=== PATIENT | female | born 1995 ===

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

== ENCOUNTER 2017-11-20 01:13 | Emergency (ER) | payer OTHER ==
[2017-11-20 01:13] VITALS: BMI 21.9
[2017-11-20 01:25] VITALS: TEMP 99.5
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
[2017-11-20 04:06] VITALS: BP 93/49; PULSE 65; RESP 16
[2017-11-20 05:14] VITALS: O2SAT 99
== END 2017-11-20 04:18 | disposition home or self-care (01) ==
LOC: H.ER 01:13
DX: M54.2 Cervicalgia (principal); M54.9 Dorsalgia, unspecified; F17.210 Nicotine dependence, cigarettes, uncomplicated; V89.2XXA Person injured in unspecified motor-vehicle accident, traffic, initial encounter
CPT/HCPCS: 81025; 96372; 99283; J1885

== ENCOUNTER 2018-02-14 14:24 | Emergency (ER) | payer OTHER ==
[2018-02-14 14:25] VITALS: BMI 21.9
[2018-02-14 14:42] VITALS: BP 127/71; PULSE 121; RESP 19; TEMP 97.6; O2SAT 99
[2018-02-14 17:05] LABS: BASO # 0.1 K/uL (0.0-0.2); BASO % 0.7 % (0.0-2.0); EOS # 0.2 K/uL (0.0-0.7); EOS % 1.8 % (0.0-4.0); HEMOGLOBIN 13.5 g/dL (12.0-16.0); LYMPH # 2.7 K/uL (1.0-4.3); LYMPH % 26.8 % (20.0-40.0); MEAN CELL VOLUME 95.7 fl (81.0-99.0); MEAN CORPUSCULAR HGB CONC 33.4 g/dL (33.0-37.0); MONO # 0.7 K/uL (0.0-0.8); NEUT # 6.3 K/uL (1.8-7.0); NEUT % 63.7 % (50.0-75.0); NRBC % 0.1 % (0.0-0.0); RBC 4.21 Mil/uL (3.80-5.20); RED CELL DISTRIBUTION WIDTH 13.6 % (11.5-14.5); WHITE BLOOD COUNT 9.9 K/uL (4.8-10.8)
[2018-02-14 17:14] LABS: ALB/GLOB RATIO 1.4 (1.0-2.1); ALBUMIN 4.3 g/dL (3.5-5.0); ALT/SGPT 23 U/L (9-52); AST/SGOT 19 U/L (14-36); BLOOD UREA NITROGEN 14 mg/dl (7-17); GFR NON-AFRICAN AMERICAN > 60
--- NOTE | 2018-02-14 17:55 | ED PDOC ---
HPI: General Adult Time Seen by Provider: 02/14/18 14:46 Chief Complaint (Nursing): Dizziness/Lightheaded Chief Complaint (Provider): Dizziness/Lightheaded History Per: Patient History/Exam Limitations: no limitations Additional Complaint(s): 23 y/o female presents to ED complaining of dizziness for the past x2 weeks. Patient reports feeling weak and tired. She denies fever, chills, sore throat, cough, nausea, vomiting, or headache. Patient also complains of abnormal scabbing in the center of her tattoo on her right upper extremity that she got x4 days ago. She states her period is due today and her last menses was normal. Past Medical History Reviewed: Historical Data, Nursing Documentation, Vital Signs Vital Signs: Last Vital Signs Temp 97.6 F 02/14/18 14:38 Pulse 121 H 02/14/18 14:38 Resp 19 02/14/18 14:38 BP 127/71 02/14/18 14:38 Pulse Ox 99 02/14/18 14:38 - Medical History PMH: Gastritis, Migraine Denies: Chronic Kidney Disease - Surgical History Surgical History: Endoscopy - Family History Family History: States: Unknown Family Hx - Immunization History Hx Tetanus Toxoid Vaccination: No Hx Influenza Vaccination: No Hx Pneumococcal Vaccination: No - Home Medications Home Medications: Ambulatory Orders Medication Instructions Recorded Omeprazole Magnesium [Prilosec Otc] 20 mg PO DAILY #30 tcp 11/08/16 Cyclobenzaprine [Cyclobenzaprine 10 mg PO Q8 PRN #12 tab 11/20/17 HCl] Naproxen 500 mg PO BID PRN #20 tab 11/20/17 Cephalexin [Keflex] 500 mg PO BID #14 capsule 02/14/18 - Allergies Allergies/Adverse Reactions: Allergies Allergy/AdvReac Type Severity Reaction Status Date / Time No Known Allergies Allergy Unverified 02/14/18 14:42 Review of Systems ROS Statement: Except As Marked, All Systems Reviewed And Found Negative Constitutional: Positive for: Weakness. Negative for: Fever, Chills Neurological: Positive for: Weakness, Dizziness. Negative for: Headache Physical Exam - Reviewed Nursing Documentation Reviewed: Yes Vital Signs Reviewed: Yes - Physical Exam Appears: Positive for: Well, Non-toxic, No Acute Distress Head Exam: Positive for: ATRAUMATIC, NORMAL INSPECTION, NORMOCEPHALIC Skin: Positive for: Normal Color, Warm, DRY Eye Exam: Positive for: EOMI, Normal appearance, PERRL Neck: Positive for: Normal, Painless ROM Cardiovascular/Chest: Positive for: Regular Rate, Rhythm. Negative for: Murmur, Bradycardia Respiratory: Positive for: Normal Breath Sounds. Negative for: Respiratory Distress Extremity: Positive for: Normal ROM, Other (thick scab in center of flower tattoo located on upper right arm; no drainage no erythema). Negative for: Pedal Edema, Deformity Neurologic/Psych: Positive for: Alert, Oriented. Negative for: Motor/Sensory Deficits - Laboratory Results Result Diagrams: 02/14/18 16:55 02/14/18 16:55 - ECG O2 Sat by Pulse Oximetry: 99 (RA) Pulse Ox Interpretation: Normal Medical Decision Making Medical Decision Making: Time: 16:27 Initial Impression: dizziness and abnormal skin integrity Initial Plan: * EKG * CMP * TSH * CBC w/diff Scribe Attestation: Documented by Vishal Saucedo, acting as a scribe for Shruthi Colon PA-C. Provider Scribe Attestation: All medical record entries made by the Scribe were at my direction and personally dictated by me. I have reviewed the chart and agree that the record accurately reflects my personal performance of the history, physical exam, medical decision making, and the department course for this patient. I have also personally directed, reviewed, and agree with the discharge instructions and disposition. Disposition - Clinical Impression Clinical Impression: Lightheadedness, Tattoo reaction - Patient ED Disposition Is Patient to be Admitted: No - Disposition Disposition: Routine/Home Disposition Time: 17:55 Condition: GOOD Prescriptions: Cephalexin [Keflex] 500 mg PO BID #14 capsule Instructions: Generalized Weakness (DC) Forms: [employer] (Botswanan) Print Language: SETSWANA
--- NOTE | 2018-02-15 09:28 | CARD ---
APPROVED REPORT Date of service: 02/14/2018 EKG Measurement Heart [id number] <Conclusion> Normal sinus rhythm Normal ECG
== END 2018-02-14 18:38 | disposition home or self-care (01) ==
LOC: H.ER 14:24
DX: R42 Dizziness and giddiness (principal); F43.0 Acute stress reaction

== ENCOUNTER 2018-04-09 19:01 | Emergency (ER) | payer OTHER ==
[2018-04-09 19:01] VITALS: BMI 21.9
[2018-04-09 19:17] VITALS: BP 127/80; PULSE 116; RESP 16; TEMP 98.7; O2SAT 100
--- NOTE | 2018-04-09 20:22 | ED PDOC ---
HPI: Headache Time Seen by Provider: 04/09/18 19:19 Chief Complaint (Nursing): Headache Chief Complaint (Provider): Headache History Per: Patient History/Exam Limitations: no limitations Onset/Duration Of Symptoms: Days (x4) Current Symptoms Are (Timing): Still Present Additional Complaint(s): 23 year old female presents to the ED with 4 day history of intermittent mild headaches, gradual on onset. Pain is limited to the forehead. Patient reports associated nasal congestion and facial pressure. Denies fever or chills. 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 PMD: none Past Medical History Reviewed: Historical Data, Nursing Documentation, Vital Signs Vital Signs: Last Vital Signs Temp 98.7 F 04/09/18 19:14 Pulse 116 H 04/09/18 19:14 Resp 16 04/09/18 19:14 BP 127/80 04/09/18 19:14 Pulse Ox 100 04/09/18 19:14 - Medical History PMH: Gastritis, Migraine Denies: Chronic Kidney Disease - Surgical History Surgical History: Endoscopy - Family History Family History: States: Unknown Family Hx - Immunization History Hx Tetanus Toxoid Vaccination: No Hx Influenza Vaccination: No Hx Pneumococcal Vaccination: No - Home Medications Home Medications: Ambulatory Orders Medication Instructions Recorded Omeprazole Magnesium [Prilosec Otc] 20 mg PO DAILY #30 tcp 11/08/16 Cyclobenzaprine [Cyclobenzaprine 10 mg PO Q8 PRN #12 tab 11/20/17 HCl] RX: Naproxen 500 mg PO BID PRN #20 tab 11/20/17 Cephalexin [Keflex] 500 mg PO BID #14 capsule 02/14/18 RX: Ibuprofen [Motrin Tab] 600 mg PO BID #10 tab 04/09/18 - Allergies Allergies/Adverse Reactions: Allergies Allergy/AdvReac Type Severity Reaction Status Date / Time No Known Allergies Allergy Verified 04/09/18 19:14 Review of Systems ROS Statement: Except As Marked, All Systems Reviewed And Found Negative Constitutional: Positive for: Other (facial pressure). Negative for: Fever, Chills ENT: Positive for: Nose Congestion Neurological: Positive for: Headache (mild) Physical Exam - Reviewed Nursing Documentation Reviewed: Yes Vital Signs Reviewed: Yes - Physical Exam Appears: Positive for: Non-toxic, No Acute Distress Head Exam: Positive for: ATRAUMATIC, NORMOCEPHALIC Skin: Positive for: Normal Color, Warm, Dry Eye Exam: Positive for: Normal appearance, EOMI ENT: Negative for: Other (sinus swelling, tenderness, or erythema) Neck: Positive for: Normal, Painless ROM Cardiovascular/Chest: Positive for: Regular Rate, Rhythm Respiratory: Positive for: Normal Breath Sounds. Negative for: Wheezing, Respiratory Distress Extremity: Positive for: Normal ROM Neurologic/Psych: Positive for: Alert, Oriented. Negative for: Motor/Sensory Deficits - ECG O2 Sat by Pulse Oximetry: 100 (RA) Pulse Ox Interpretation: Normal Medical Decision Making Medical Decision Making: Initial Plan: --ED urine --Motrin 600mg PO Pt. well appearing ,on phone, RODRIGUEZ improved, neuro intact, ambulating with steady gait. repeat hr 85. Patient is stable for discharge. ----- Scribe Attestation: Documented by Artemio Hernandez acting as a scribe for Jessi CHOWDHURY. Provider Scribe Attestation: All medical record entries made by the Scribe were at my direction and personally dictated by me. I have reviewed the chart and agree that the record accurately reflects my personal performance of the history, physical exam, medical decision making, and the department course for this patient. I have also personally directed, reviewed, and agree with the discharge instructions and dis position. Disposition - Clinical Impression Clinical Impression: Headache - Disposition Referrals: [facility] [Outside] Disposition Time: 21:26 Condition: STABLE Prescriptions: RX: Ibuprofen [Motrin Tab] 600 mg PO BID #10 tab Instructions: Headache, Adult (DC) Forms: [employer] (Greek) Print Language: INDONESIAN
== END 2018-04-09 20:41 | disposition home or self-care (01) ==
LOC: H.ER 19:01
DX: R51 Headache (principal)

== ENCOUNTER 2018-06-15 00:43 | Emergency (ER) | payer OTHER ==
[2018-06-15 00:43] VITALS: BMI 21.9
[2018-06-15] MEDS ORDERED: Sodium Chloride 0.9% 1,000 ML IV STA (01:32)
--- NOTE | 2018-06-15 01:35 | ED PDOC ---
HPI: Abdomen Time Seen by Provider: 06/15/18 01:15 Chief Complaint (Nursing): Abdominal Pain Chief Complaint (Provider): abdominal pain History Per: Patient History/Exam Limitations: no limitations Onset/Duration Of Symptoms: Days (1) Current Symptoms Are (Timing): Still Present Location Of Pain/Discomfort: Epigastric Quality Of Discomfort: Cramping, Burning, "Pain" Associated Symptoms: Nausea, Vomiting, Diarrhea Additional Complaint(s): 23 y/o female history of gastritis, migraines presents for evaluation of abdominal pain x 1 day. Associated multiple episodes of vomiting and diarrhea, and headache. Denies fever, chest pain, shortness of breath, palpitations, urinary symptoms, recent travel, sick contacts. Patient states she is noncompliant with her medications because she "forgets" Past Medical History Reviewed: Historical Data, Nursing Documentation, Vital Signs Vital Signs: Last Vital Signs Temp 98.2 F 06/15/18 00:58 Pulse 87 06/15/18 00:58 Resp 16 06/15/18 00:58 BP 104/63 06/15/18 00:58 Pulse Ox 99 06/15/18 00:58 - Medical History PMH: Gastritis, Migraine Denies: Chronic Kidney Disease - Surgical History Surgical History: Endoscopy - Family History Family History: States: Unknown Family Hx - Immunization History Hx Tetanus Toxoid Vaccination: No Hx Influenza Vaccination: No Hx Pneumococcal Vaccination: No - Home Medications Home Medications: Ambulatory Orders Medication Instructions Recorded Omeprazole Magnesium [Prilosec Otc] 20 mg PO DAILY #30 tcp 11/08/16 Cyclobenzaprine [Cyclobenzaprine 10 mg PO Q8 PRN #12 tab 11/20/17 HCl] Naproxen 500 mg PO BID PRN #20 tab 11/20/17 Cephalexin [Keflex] 500 mg PO BID #14 capsule 02/14/18 Ibuprofen [Motrin Tab] 600 mg PO BID #10 tab 04/09/18 Esomeprazole Magnesium [Nexium] 20 mg PO DAILY #15 capsule. 06/15/18 Ondansetron ODT [Zofran ODT] 4 mg PO Q8 PRN #10 odt 06/15/18 - Allergies Allergies/Adverse Reactions: Allergies Allergy/AdvReac Type Severity Reaction Status Date / Time No Known Allergies Allergy Verified 04/09/18 19:14 Review of Systems ROS Statement: Except As Marked, All Systems Reviewed And Found Negative Gastrointestinal: Positive for: Nausea, Vomiting, Abdominal Pain, Diarrhea Neurological: Positive for: Headache Physical Exam - Reviewed Nursing Documentation Reviewed: Yes Vital Signs Reviewed: Yes - Physical Exam Appears: Positive for: Well, Non-toxic, No Acute Distress Head Exam: Positive for: ATRAUMATIC, NORMAL INSPECTION, NORMOCEPHALIC Skin: Positive for: Normal Color Eye Exam: Positive for: Normal appearance ENT: Positive for: Normal ENT Inspection Cardiovascular/Chest: Positive for: Regular Rate, Rhythm Respiratory: Positive for: Normal Breath Sounds Gastrointestinal/Abdominal: Positive for: Bowel Sounds, Soft, Tenderness (epigastric) Back: Positive for: Normal Inspection Extremity: Positive for: Normal ROM Neurological/Psych: Positive for: Awake, Alert, Oriented - Laboratory Results Result Diagrams: 06/15/18 02:00 06/15/18 02:00 - ECG O2 Sat by Pulse Oximetry: 99 - Progress ED Course And Treament: -cbc -cmp -lipase -urinalysis -IV NS bolus -IV pepcid -IV zofran On re-eval, patient states she is feeling better, tolerating PO Patient educated on findings, discharged with rx nexium, zofran Advised increase fluid intake, bland diet Follow up PMD/GI Return precautions given Disposition - Clinical Impression Clinical Impression: Gastroenteritis, Gastritis - Patient ED Disposition Is Patient to be Admitted: No Counseled Patient/Family Regarding: Studies Performed, Diagnosis, Need For Followup, Rx Given - Disposition Disposition: Routine/Home Disposition Time: 04:20 Condition: IMPROVED Prescriptions: Esomeprazole Magnesium [Nexium] 20 mg PO DAILY #15 capsule. Ondansetron ODT [Zofran ODT] 4 mg PO Q8 PRN #10 odt PRN Reason: Nausea/Vomiting Instructions: Gastritis, Gastroenteritis (ED) Forms: [employer] (Ukrainian) Print Language: KAZAKH
[2018-06-15 02:25] LABS: BASO # 0.1 K/uL (0.0-0.2); BASO % 0.4 % (0.0-2.0); EOS % 0.4 % (0.0-4.0); HEMOGLOBIN 13.9 g/dL (12.0-16.0); LYMPH # 1.7 K/uL (1.0-4.3); LYMPH % 14.5 % (20.0-40.0); MEAN CELL VOLUME 94.6 fl (81.0-99.0); MEAN CORPUSCULAR HEMOGLOBIN 31.8 pg (27.0-31.0); MEAN CORPUSCULAR HGB CONC 33.6 g/dL (33.0-37.0); MEAN PLATELET VOLUME 9.8 fl (7.2-11.7); MONO # 0.4 K/uL (0.0-0.8); MONO % 3.1 % (0.0-10.0); NEUT # 9.8 K/uL (1.8-7.0); NEUT % 81.6 % (50.0-75.0); RBC 4.36 Mil/uL (3.80-5.20); RED CELL DISTRIBUTION WIDTH 13.1 % (11.5-14.5)
[2018-06-15 02:46] LABS: ALB/GLOB RATIO 1.4 (1.0-2.1); ALT/SGPT 33 U/L (9-52); AST/SGOT 44 U/L (14-36); BLOOD UREA NITROGEN 18 mg/dl (7-17); CALCIUM 10.4 mg/dL (8.4-10.2); GFR NON-AFRICAN AMERICAN > 60; LIPASE 52 U/L (23-300)
[2018-06-15] MEDS ORDERED: Potassium Chloride 20 mEq ER Tab PO ONE ×2 (02:50→03:07)
[2018-06-15 04:54] VITALS: BP 109/59; PULSE 70; RESP 18; TEMP 98.3; O2SAT 98
== END 2018-06-15 04:56 | disposition home or self-care (01) ==
LOC: H.ER 00:43
DX: K29.70 Gastritis, unspecified, without bleeding (principal); K52.9 Noninfective gastroenteritis and colitis, unspecified
CPT/HCPCS: 80053; 81025; 83690; 85025; 96374; 99285; J2405; J2765; J7030

== ENCOUNTER 2018-08-10 18:09 | Emergency (ER) | payer OTHER ==
[2018-08-10 18:10] VITALS: BMI 21.9
[2018-08-10 18:15] VITALS: BP 103/69; PULSE 92; RESP 20; TEMP 98.6; O2SAT 98
--- NOTE | 2018-08-10 19:10 | ED PDOC ---
HPI: Abdomen Additional Complaint(s): 23 y/o F with a PMHx of gastritis by endoscopy (2017) presents with 4 days Hx of epigastric abdominal pain that aggravated progressively and now 10/10 intensity. Pt reports nausea and vomiting multiple time, yellowish bilious material in small amount. Pt cannot tolerate PO, tried to eat fruits this morning and vomited all. Pt is supposed to take Omeprazole daily; however, she usually forgets to take it. Pt denies fever, chills, diarrhea, constipation, chest pain, SOB or rash. --Pt with Hx of chronic sinusitis also complains of headache that aggravated this morning and is associated with nasal congestion and runny nose. PMD: Dr Benito STEIN Meds: Omeprazole PMHx: gastritis, chronic sinusitis. PSHx: denied FHx: denied SHx: smokes cigarettes 3-5 per day. Pt consumes marihuana intermittently, last use yesterday. NO alcohol. <Mikie Love - Last Filed: 08/10/18 19:19> <Jaja Corley - Last Filed: 08/10/18 22:58> Time Seen by Provider: 08/10/18 18:47 Chief Complaint (Nursing): Abdominal Pain Past Medical History Vital Signs: Last Vital Signs Temp 98.6 F 08/10/18 18:13 Pulse 92 H 08/10/18 18:13 Resp 20 08/10/18 18:13 BP 103/69 08/10/18 18:13 Pulse Ox 98 08/10/18 18:13 Primary Care Provider: FAMILY PROVIDER,NO - Medical History PMH: Gastritis, Migraine Denies: Chronic Kidney Disease - Surgical History Surgical History: Endoscopy - Family History Family History: States: Unknown Family Hx - Immunization History Hx Tetanus Toxoid Vaccination: No Hx Influenza Vaccination: No Hx Pneumococcal Vaccination: No <Mikie Love - Last Filed: 08/10/18 19:19> Vital Signs: Last Vital Signs Temp 98.6 F 08/10/18 18:13 Pulse 92 H 08/10/18 18:13 Resp 20 08/10/18 18:13 BP 103/69 08/10/18 18:13 Pulse Ox 98 08/10/18 19:28 <Jaja Corley - Last Filed: 08/10/18 22:58> - Home Medications Home Medications: Ambulatory Orders Medication Instructions Recorded Omeprazole Magnesium [Prilosec Otc] 20 mg PO DAILY #30 tcp 11/08/16 Cyclobenzaprine [Cyclobenzaprine 10 mg PO Q8 PRN #12 tab 11/20/17 HCl] Naproxen 500 mg PO BID PRN #20 tab 11/20/17 Cephalexin [Keflex] 500 mg PO BID #14 capsule 02/14/18 Ibuprofen [Motrin Tab] 600 mg PO BID #10 tab 04/09/18 Esomeprazole Magnesium [Nexium] 20 mg PO DAILY #15 capsule. 06/15/18 Ondansetron ODT [Zofran ODT] 4 mg PO Q8 PRN #10 odt 06/15/18 Amoxicillin/Clavulanate [Augmentin 1 tab PO BID #30 tab 08/10/18 875 MG-125 MG] Clarithromycin [Biaxin Filmtab] 500 mg PO BID #30 tab 08/10/18 Omeprazole Magnesium [Prilosec Otc] 20 mg PO BID #30 tcp 08/10/18 Sucralfate [Carafate Tab] 1 gm PO Q6 PRN #30 tab 08/10/18 - Allergies Allergies/Adverse Reactions: Allergies Allergy/AdvReac Type Severity Reaction Status Date / Time No Known Allergies Allergy Verified 04/09/18 19:14 Review of Systems Constitutional: Negative for: Fever Eyes: Negative for: Pain ENT: Negative for: Ear Pain, Ear Discharge, Nose Pain Cardiovascular: Negative for: Chest Pain, Palpitations, Orthopnea Respiratory: Negative for: Cough, Shortness of Breath, Hemoptysis Gastrointestinal: Positive for: Nausea, Vomiting, Abdominal Pain. Negative for: Diarrhea, Constipation Genitourinary Female: Negative for: Dysuria, Frequency, Hematuria <Mikie Love - Last Filed: 08/10/18 19:19> Physical Exam - Physical Exam Appears: Positive for: In Acute Distress Head Exam: Positive for: ATRAUMATIC Skin: Positive for: Normal Color Eye Exam: Positive for: EOMI ENT: Positive for: Other (Erythematous and edematous b/l nasal turbinates.) Neck: Positive for: Normal, Painless ROM, Supple Cardiovascular/Chest: Positive for: Regular Rate, Rhythm Respiratory: Positive for: Normal Breath Sounds Gastrointestinal/Abdominal: Positive for: Bowel Sounds (present), Soft, Tenderness (epigastric). Negative for: Organomegaly, Distended, Guarding, Rebound Back: Negative for: L CVA Tenderness, R CVA Tenderness Neurological/Psych: Positive for: Awake, Alert <Mikie Love - Last Filed: 08/10/18 19:19> - ECG O2 Sat by Pulse Oximetry: 98 <Mikie Love - Last Filed: 08/10/18 19:19> - Laboratory Results Result Diagrams: 08/10/18 19:48 08/10/18 19:48 Lab Results: Total Bilirubin 0.9 mg/dl (0.2-1.3) 08/10/18 19:48 AST 22 U/L (14-36) 08/10/18 19:48 ALT 22 U/L (9-52) 08/10/18 19:48 Alkaline Phosphatase 73 U/L (38-126) 08/10/18 19:48 Total Protein 8.5 G/DL (6.3-8.2) H 08/10/18 19:48 Albumin 5.0 g/dL (3.5-5.0) 08/10/18 19:48 Globulin 3.5 gm/dL (2.2-3.9) 08/10/18 19:48 Albumin/Globulin Ratio 1.4 (1.0-2.1) 08/10/18 19:48 Lipase 63 U/L (23-300) 08/10/18 19:48 <Jaja Corley - Last Filed: 08/10/18 22:58> Medical Decision Making Medical Decision Makin:00 --Likely gastritis vs peptic ulcer disease. H. Pylori positive. --CBC, CMP, lipase ordered --IV Zofran, IV Famotidine and iV normals saline ordered --Flonase ordered <Mikie Love - Last Filed: 08/10/18 19:19> Medical Decision Making: PRELIMINARY REPORT [facility] (formerly [facility]) [address] [place] [address] Report Submission Date: August 10, 2018 10:32:12 PM EDT Name: RUDY ANGELES Exam Date: August 10, 2018 9:20:27 PM EDT Modality Type: SD\US\SR Description: US - AB LIMITED (SINGLE ORGAN, QUADRANT) Gender: F Laterality: Right : 97 Referring Physician: Jaja Corley EXAM: US Abdomen, Right Upper Quadrant. CLINICAL HISTORY: Epigastric pain, vomiting TECHNIQUE: Right upper quadrant sonography performed with image documentation. COMPARISON: None provided. FINDINGS: LIVER: Liver is normal in size and echogenicity and demonstrates no focal lesions. GALLBLADDER: Gallbladder has a normal sonographic appearance without stones, sludge or polyps. There is no wall edema and the sonographic Camacho sign is negative. COMMON BILE DUCT: The common bile duct is normal in caliber measuring 0.4 cm. PANCREAS: The visualized pancreas has a normal sonographic appearance. The tail is not well seen secondary to overlying bowel gas. RIGHT KIDNEY: Right kidney is normal in size and demonstrates no hydronephrosis or focal lesions. MISCELLANEOUS: Visualized portions of the abdominal aorta appear unremarkable. The IVC is not well visualized. IMPRESSION: 1. Liver is normal in size and echogenicity and demonstrates no focal lesions. 2. Gallbladder has a normal sonographic appearance without stones, sludge or polyps. There is no wall edema and the sonographic Camacho sign is negative. 3. The common bile duct is normal in caliber measuring 0.4 cm. 4. The visualized pancreas has a normal sonographic appearance. The tail is not well seen secondary to overlying bowel gas. 5. Visualized portions of the abdominal aorta appear unremarkable. The IVC is not well visualized. 6. Right kidney is normal in size and demonstrates no hydronephrosis or focal lesions. Electronically signed on August 10, 2018 10:32:12 PM EDT by: Ozzy Jay M.D., M.B.A., Certified By [employer] Trained MRI and CT Specialist -------- On reassessment, patient reports feeling improvement in symptoms. Patient is stable for discharge home, instructed to take medications as prescribed. Return instructions given to patient as well. --- Scribe Attestation: Documented by Ruby Biggs acting as a scribe for Jaja Corley MD. Provider Scribe Attestation: All medical record entries made by the Scribe were at my direction and personally dictated by me. I have reviewed the chart and agree that the record accurately reflects my personal performance of the history, physical exam, medical decision making, and the department course for this patient. I have also personally directed, reviewed, and agree with the discharge instructions and disposition. <Jaja Corley - Last Filed: 08/10/18 22:58> Disposition - Patient ED Disposition Is Patient to be Admitted: Transfer of Care - Disposition Disposition: Transfer of Care Disposition Time: 19:27 <Mikie Love - Last Filed: 08/10/18 19:19> Counseled Patient/Family Regarding: Studies Performed, Diagnosis, Need For Followup, Rx Given - Disposition Disposition: Routine/Home <Jaja Corley - Last Filed: 08/10/18 22:58> - Clinical Impression Clinical Impression: Abdominal pain, Gastritis - Disposition Referrals: [facility] [Outside] - 08/11/18 (CALL TOMORROW FOR FOLLOWUP APPOINTMENT NEXT WEEK) Condition: STABLE Prescriptions: Amoxicillin/Clavulanate [Augmentin 875 MG-125 MG] 1 tab PO BID #30 tab Clarithromycin [Biaxin Filmtab] 500 mg PO BID #30 tab Omeprazole Magnesium [Prilosec Otc] 20 mg PO BID #30 tcp Sucralfate [Carafate Tab] 1 gm PO Q6 PRN #30 tab PRN Reason: ABDOMINAL PAIN Instructions: Acute Abdomen (Belly Pain), Adult (DC), H. pylori Infection, Gastritis (DC) Forms: [employer] (Japanese)
[2018-08-10] MEDS ORDERED: Sodium Chloride 0.9% 1,000 ML IV SCH (19:15)
[2018-08-10 19:57] LABS: BASO # 0.1 K/uL (0.0-0.2); BASO % 0.4 % (0.0-2.0); EOS # 0.1 K/uL (0.0-0.7); EOS % 0.6 % (0.0-4.0); HEMOGLOBIN 13.9 g/dL (12.0-16.0); LYMPH # 2.4 K/uL (1.0-4.3); LYMPH % 13.2 % (20.0-40.0); MEAN CELL VOLUME 95.3 fl (81.0-99.0); MEAN CORPUSCULAR HGB CONC 33.6 g/dL (33.0-37.0); MONO # 0.7 K/uL (0.0-0.8); NEUT # 14.6 K/uL (1.8-7.0); NEUT % 81.8 % (50.0-75.0); NRBC % 0.1 % (0.0-0.0); RBC 4.33 Mil/uL (3.80-5.20); RED CELL DISTRIBUTION WIDTH 13.6 % (11.5-14.5); WHITE BLOOD COUNT 17.8 K/uL (4.8-10.8)
[2018-08-10 20:06] LABS: ALB/GLOB RATIO 1.4 (1.0-2.1); ALT/SGPT 22 U/L (9-52); AST/SGOT 22 U/L (14-36); BLOOD UREA NITROGEN 13 mg/dl (7-17); GFR NON-AFRICAN AMERICAN > 60; LIPASE 63 U/L (23-300)
--- NOTE | 2018-08-11 13:54 | US ---
Date of service: 08/10/2018 HISTORY: UPPER ABDOMINAL PAIN COMPARISON: None. TECHNIQUE: Sonographic evaluation of the right upper quadrant of the abdomen. FINDINGS: LIVER: Measures 12.4 cm in length. Patent portal and hepatic venous systems. Portal venous flow: Hepatopetal. echogenicity of the liver parenchyma. No mass. No intrahepatic bile duct dilatation. GALLBLADDER: Unremarkable. No gallstones. COMMON BILE DUCT: Measures 3.5 mm. No stones. No dilatation. PANCREAS: Unremarkable as visualized. No mass. No ductal dilatation. RIGHT KIDNEY: Measures 3.6 x 11.3 cm in length. Normal echogenicity. No calculus, mass, or hydronephrosis. AORTA: No aneurysmal dilatation. IVC: Obscured by overlying bowel gas. Non diagnostic assessment of the IVC. OTHER FINDINGS: None . IMPRESSION: No significant or acute findings to account for/ related to the clinical presentation. Additional benign and/or incidental findings described above. Limitations of the current examination: Nondiagnostic study of the IVC. Concordant findings (preliminary report) provided by [employer].
== END 2018-08-10 23:05 | disposition home or self-care (01) ==
LOC: H.ER 18:09
DX: K29.70 Gastritis, unspecified, without bleeding (principal)
CPT/HCPCS: 76705; 80053; 81025; 83690; 85025; 96374; 96375; 99284; J2405; J7030

== ENCOUNTER 2018-08-12 18:05 | Emergency (ER) | payer OTHER ==
[2018-08-12 18:06] VITALS: BMI 21.9
[2018-08-12 18:27] VITALS: O2SAT 99
[2018-08-12] MEDS ORDERED: Iohexol 240 (50 ml) PO ONE (19:11)
[2018-08-12] MEDS ORDERED: Alum-Mag Hydrox-Simethicone Susp (30 mL) PO STA (19:12)
[2018-08-12] MEDS ORDERED: Sodium Chloride 0.9% 1,000 ML IV STA (19:12)
[2018-08-12] MEDS ORDERED: Iohexol 240 (50 ml) ONE (19:35)
[2018-08-12] MEDS ORDERED: Alum-Mag Hydrox-Simethicone Susp (30 mL) ONE (19:36)
[2018-08-12 19:56] LABS: BASO # 0.1 K/uL (0.0-0.2); BASO % 0.9 % (0.0-2.0); EOS % 0.3 % (0.0-4.0); HEMOGLOBIN 13.2 g/dL (12.0-16.0); LYMPH # 1.9 K/uL (1.0-4.3); LYMPH % 20.5 % (20.0-40.0); MEAN CELL VOLUME 94.9 fl (81.0-99.0); MEAN CORPUSCULAR HEMOGLOBIN 32.3 pg (27.0-31.0); MEAN PLATELET VOLUME 9.2 fl (7.2-11.7); MONO # 0.7 K/uL (0.0-0.8); MONO % 7.7 % (0.0-10.0); NEUT # 6.7 K/uL (1.8-7.0); NEUT % 70.6 % (50.0-75.0); NRBC % 0.1 % (0.0-0.0); RBC 4.09 Mil/uL (3.80-5.20); RED CELL DISTRIBUTION WIDTH 13.4 % (11.5-14.5); WHITE BLOOD COUNT 9.5 K/uL (4.8-10.8)
--- NOTE | 2018-08-12 20:00 | ED PDOC ---
HPI: Abdomen Time Seen by Provider: 08/12/18 18:40 Chief Complaint (Nursing): Abdominal Pain Chief Complaint (Provider): Epigastric pain - Pepcid at home History Per: Patient History/Exam Limitations: no limitations Past Medical History Vital Signs: Last Vital Signs Temp 99 F 08/12/18 18:24 Pulse 98 H 08/12/18 18:24 Resp 18 08/12/18 18:24 BP 123/78 08/12/18 18:24 Pulse Ox 99 08/12/18 18:24 Primary Care Provider: FAMILY PROVIDER,NO - Medical History PMH: Gastritis, Migraine Denies: Chronic Kidney Disease - Surgical History Surgical History: Endoscopy - Family History Family History: States: Unknown Family Hx - Immunization History Hx Tetanus Toxoid Vaccination: No Hx Influenza Vaccination: No Hx Pneumococcal Vaccination: No - Home Medications Home Medications: Ambulatory Orders Medication Instructions Recorded Omeprazole Magnesium [Prilosec Otc] 20 mg PO DAILY #30 tcp 11/08/16 Cyclobenzaprine [Cyclobenzaprine 10 mg PO Q8 PRN #12 tab 11/20/17 HCl] Naproxen 500 mg PO BID PRN #20 tab 11/20/17 Cephalexin [Keflex] 500 mg PO BID #14 capsule 02/14/18 Ibuprofen [Motrin Tab] 600 mg PO BID #10 tab 04/09/18 Esomeprazole Magnesium [Nexium] 20 mg PO DAILY #15 capsule.dr 06/15/18 Ondansetron ODT [Zofran ODT] 4 mg PO Q8 PRN #10 odt 06/15/18 Amoxicillin/Clavulanate [Augmentin 1 tab PO BID #30 tab 08/10/18 875 MG-125 MG] Clarithromycin [Biaxin Filmtab] 500 mg PO BID #30 tab 08/10/18 Omeprazole Magnesium [Prilosec Otc] 20 mg PO BID #30 tcp 08/10/18 Sucralfate [Carafate Tab] 1 gm PO Q6 PRN #30 tab 08/10/18 - Allergies Allergies/Adverse Reactions: Allergies Allergy/AdvReac Type Severity Reaction Status Date / Time No Known Allergies Allergy Verified 04/09/18 19:14 - ECG O2 Sat by Pulse Oximetry: 99 Medical Decision Making Medical Decision Makin - Continued pain, morphine 2mg ordered. Endorsed to JIM Frereira Disposition - Clinical Impression Clinical Impression: Abdominal pain in female - Patient ED Disposition Is Patient to be Admitted: Transfer of Care - Disposition Disposition: Transfer of Care Disposition Time: 20:01 Condition: STABLE Forms: [employer] (Frisian)
[2018-08-12 20:09] LABS: ALB/GLOB RATIO 1.5 (1.0-2.1); ALBUMIN 4.6 g/dL (3.5-5.0); ALT/SGPT 23 U/L (9-52); AST/SGOT 20 U/L (14-36); BLOOD UREA NITROGEN 9 mg/dl (7-17); CALCIUM 9.3 mg/dL (8.4-10.2); GFR NON-AFRICAN AMERICAN > 60; LIPASE 103 U/L (23-300)
--- NOTE | 2018-08-12 20:12 | ED PDOC ---
- Laboratory Results Result Diagrams: 08/12/18 19:40 08/12/18 19:40 Lab Results: Total Bilirubin 0.8 mg/dl (0.2-1.3) 08/12/18 19:40 AST 20 U/L (14-36) 08/12/18 19:40 ALT 23 U/L (9-52) 08/12/18 19:40 Alkaline Phosphatase 61 U/L (38-126) 08/12/18 19:40 Total Protein 7.7 G/DL (6.3-8.2) 08/12/18 19:40 Albumin 4.6 g/dL (3.5-5.0) 08/12/18 19:40 Globulin 3.0 gm/dL (2.2-3.9) 08/12/18 19:40 Albumin/Globulin Ratio 1.5 (1.0-2.1) 08/12/18 19:40 Lipase 103 U/L (23-300) 08/12/18 19:40 - ECG O2 Sat by Pulse Oximetry: 99 Medical Decision Making Medical Decision Making: EXAM: CT Abdomen and Pelvis with IV contrast CLINICAL HISTORY: ABDOMINAL PAIN TECHNIQUE: Axial computed tomography images of the abdomen and pelvis with intravenous co ntrast. 248.23 mGy-cm CONTRAST: With; [id number] 95ML COMPARISON: SD\US\SR - ABDOMEN LIMITED (GB INCLUDED) - 08/10/2018 09:20 PM EDT FINDINGS: LUNG BASES: The lung bases appear clear. No pleural effusions are seen. LIVER: Unremarkable. GALLBLADDER AND BILE DUCTS: The gallbladder appears within normal limits. No radioopaque gallstones are seen. No biliary ductal dilatation is evident. PANCREAS: Unremarkable. SPLEEN: Unremarkable. ADRENAL GLANDS: Unremarkable. KIDNEYS, URETERS, AND BLADDER: The kidneys appear within normal limits. There is no hydronephrosis or hydrou reter. No urinary calculi are seen. STOMACH AND BOWEL: Questionable gastric wall thickening versus underdistention. Please correlate clinically and if indicated this could be further evaluated with upper endoscopy or upper GI examination. APPENDIX: Normal appendix identified. PERITONEUM: No free fluid. No free air. LYMPH NODES: No lymphadenopathy is evident. REPRODUCTIVE: Unremarkable as visualized. VASCULATURE: No evidence of abdominal aortic aneurysm. BONES: No aggressive appearing osseous lesion. No acute osseous pathology evident. IMPRESSION: 1. Questionable gastric wall thickening versus underdistention. Please correlate clinically and if indicated this could be further evaluated with upper endoscopy or upper GI examination. 2. Additional, incidental findings as described above. Electronically signed on August 12, 2018 11:12:21 PM EDT by: Ozzy Jay M.D., M.B.A., Certified By [facility] Trained MRI and CT Specialist Disposition - Clinical Impression Clinical Impression: Gastritis - POA Present On Arrival: None - Disposition Referrals: Margarito Jesus MD [Staff Provider] - Disposition: Routine/Home Disposition Time: 23:33 Condition: STABLE Prescriptions: Ondansetron ODT [Zofran ODT] 4 mg PO Q8 PRN #8 odt PRN Reason: Nausea/Vomiting Pantoprazole Sodium [Protonix] 40 mg PO DAILY #15 ect Sucralfate [Carafate] 10 ml PO QID #280 ml Instructions: Gastritis, Ulcer and Gastritis Diet Forms: [facility] ED School/Work Excuse
[2018-08-12] MEDS ORDERED: Iohexol 300 100 ML IJ ONE (22:05)
[2018-08-12] MEDS ORDERED: Sodium Chloride 0.9% 50 ML IV ONE (22:06)
[2018-08-12] MEDS ORDERED: Sucralfate 1 gm/10 ml Oral Susp UD PO STA (23:38)
[2018-08-12] MEDS ORDERED: Sucralfate 1 gm/10 ml Oral Susp UD ONE (23:43)
[2018-08-13 02:20] VITALS: BP 104/60; PULSE 76; RESP 14; TEMP 98.8
--- NOTE | 2018-08-13 12:49 | CT ---
Date of service: 08/12/2018 PROCEDURE: CT Abdomen and Pelvis with contrast HISTORY: abdominal pain COMPARISON: None. TECHNIQUE: Following oral and intravenous contrast administration, a CT examination of the abdomen and pelvis was performed from the domes of the diaphragms to the symphysis pubis with reformatted datasets provided not only axial but also sagittal and coronal series. Contrast dose: Omnipaque 300, 95 cc Radiation dose: Total exam DLP = 248.23 mGy-cm. This CT exam was performed using one or more of the following dose reduction techniques: Automated exposure control, adjustment of the mA and/or kV according to patient size, and/or use of iterative reconstruction technique. FINDINGS: LOWER THORAX: Unremarkable. LIVER: Unremarkable. No gross lesion or ductal dilatation. GALLBLADDER AND BILE DUCTS: Gallbladder is moderate distended without mural thickening or radiodense cholelithiasis. PANCREAS: Unremarkable. No gross lesion or ductal dilatation. SPLEEN: Unremarkable. ADRENALS: Unremarkable. No mass. KIDNEYS AND URETERS: Unremarkable. No hydronephrosis. No solid mass. VASCULATURE: Unremarkable. No aortic aneurysm. No aortic atherosclerotic calcification or mural plaque present. BOWEL: Unremarkable. No obstruction. No gross mural thickening. APPENDIX: No CT evidence of appendicitis. PERITONEUM: Trace fluid noted in the pelvis. No free air. No abdominal ascites. LYMPH NODES: Unremarkable. No enlarged lymph nodes. BLADDER: Unremarkable. REPRODUCTIVE: Unremarkable. BONES: No acute fracture. OTHER FINDINGS: None. IMPRESSION: Trace fluid seen the pelvis of uncertain origin. No suspicious adnexal findings. No bowel or urinary tract obstruction. No free air or peritoneal abscess identified. No gross mass or significant lymphadenopathy. Stomach is completely collapsed limiting its evaluation. Mural thickening may be a function of under distention but clinical correlation is advised for potential gastritis or other mural pathology at the stomach. Concordant preliminary report from [facility] [employer], 08/12/2018, 11:12 p.m..
== END 2018-08-13 02:15 | disposition home or self-care (01) ==
LOC: H.ER 18:05
DX: K29.70 Gastritis, unspecified, without bleeding (principal)
CPT/HCPCS: 74177; 80053; 81025; 83690; 85025; 96361; 96374; 96375; 99285; J1885; J2270; J2405; J7030; Q9966; Q9967

== ENCOUNTER 2018-08-15 05:40 | Emergency (ER) | payer OTHER ==
[2018-08-15 05:41] VITALS: BMI 21.9
[2018-08-15 06:02] VITALS: O2SAT 100
[2018-08-15] MEDS ORDERED: Sodium Chloride 0.9% 1,000 ML IV STA (06:08)
--- NOTE | 2018-08-15 06:19 | ED PDOC ---
HPI: Abdomen Time Seen by Provider: 08/15/18 05:43 Chief Complaint (Nursing): Abdominal Pain Chief Complaint (Provider): Abdominal pain History Per: Patient History/Exam Limitations: no limitations Onset/Duration Of Symptoms: Days Current Symptoms Are (Timing): Still Present Location Of Pain/Discomfort: Epigastric Quality Of Discomfort: "Pain" Associated Symptoms: Nausea, Vomiting, Diarrhea, Loss Of Appetite Additional Complaint(s): 23yo female with history of gastritis, H.Pylori (intermittent compliance with prior treatment), comes to ER for evaluation of epigastric abdominal pain. patient was evaluated in this ER last week and today is her 3rd visit for same complaints. Patient reports persistent nausea, vomiting, diarrhea and epigastric pain. She states she has been unable to tolerate PO intake and is unsure of what she can and cannot eat. She denies any increased intake of Motrin, caffeine or alcohol. PMD: Dr. Aguirre Past Medical History Reviewed: Historical Data, Nursing Documentation, Vital Signs Vital Signs: Last Vital Signs Temp 98.3 F 08/15/18 05:58 Pulse 83 08/15/18 05:58 Resp 18 08/15/18 05:58 BP 143/79 08/15/18 05:58 Pulse Ox 100 08/15/18 05:58 Primary Care Provider: Enrique Aguirre - Medical History PMH: Gastritis, Migraine Denies: Chronic Kidney Disease - Surgical History Surgical History: Endoscopy - Family History Family History: States: Unknown Family Hx - Social History Current smoker - smoking cessation education provided: Yes Alcohol: None Drugs: Denies - Immunization History Hx Tetanus Toxoid Vaccination: No Hx Influenza Vaccination: No Hx Pneumococcal Vaccination: No - Home Medications Home Medications: Ambulatory Orders Medication Instructions Recorded Omeprazole Magnesium [Prilosec Otc] 20 mg PO DAILY #30 tcp 11/08/16 Cyclobenzaprine [Cyclobenzaprine 10 mg PO Q8 PRN #12 tab 11/20/17 HCl] Naproxen 500 mg PO BID PRN #20 tab 11/20/17 Cephalexin [Keflex] 500 mg PO BID #14 capsule 02/14/18 Ibuprofen [Motrin Tab] 600 mg PO BID #10 tab 04/09/18 Esomeprazole Magnesium [Nexium] 20 mg PO DAILY #15 capsule. 06/15/18 Ondansetron ODT [Zofran ODT] 4 mg PO Q8 PRN #10 odt 06/15/18 Amoxicillin/Clavulanate [Augmentin 1 tab PO BID #30 tab 08/10/18 875 MG-125 MG] Clarithromycin [Biaxin Filmtab] 500 mg PO BID #30 tab 08/10/18 Omeprazole Magnesium [Prilosec Otc] 20 mg PO BID #30 tcp 08/10/18 Sucralfate [Carafate Tab] 1 gm PO Q6 PRN #30 tab 08/10/18 Ondansetron ODT [Zofran ODT] 4 mg PO Q8 PRN #8 odt 08/12/18 Pantoprazole Sodium [Protonix] 40 mg PO DAILY #15 ect 08/12/18 Sucralfate [Carafate] 10 ml PO QID #280 ml 08/12/18 Dicyclomine [Bentyl] 20 mg PO QID PRN #10 tab 08/15/18 Famotidine [Pepcid] 20 mg PO BID #20 tab 08/15/18 - Allergies Allergies/Adverse Reactions: Allergies Allergy/AdvReac Type Severity Reaction Status Date / Time No Known Allergies Allergy Verified 08/15/18 05:58 Review of Systems ROS Statement: Except As Marked, All Systems Reviewed And Found Negative Constitutional: Negative for: Fever, Chills Gastrointestinal: Positive for: Nausea, Vomiting, Abdominal Pain, Diarrhea Physical Exam - Reviewed Nursing Documentation Reviewed: Yes Vital Signs Reviewed: Yes - Physical Exam Appears: Positive for: Non-toxic, Uncomfortable Head Exam: Positive for: ATRAUMATIC, NORMAL INSPECTION, NORMOCEPHALIC Skin: Positive for: Normal Color Eye Exam: Positive for: Normal appearance ENT: Positive for: Normal ENT Inspection Neck: Positive for: Normal, Supple Cardiovascular/Chest: Positive for: Regular Rate, Rhythm. Negative for: Tachycardia Respiratory: Positive for: Normal Breath Sounds. Negative for: Respiratory Distress Gastrointestinal/Abdominal: Positive for: Bowel Sounds, Soft, Tenderness (epigastric mild tenderness, no RUQ no RLQ tenderness). Negative for: Mass, Guarding, Rebound Back: Positive for: Normal Inspection Extremity: Positive for: Normal ROM Neurological/Psych: Positive for: Awake, Alert, Normal Tone - Laboratory Results Result Diagrams: 08/15/18 06:20 08/15/18 06:20 - ECG O2 Sat by Pulse Oximetry: 100 (RA) Pulse Ox Interpretation: Normal Medical Decision Making Medical Decision Making: Impression: Epigastric pain; history of gastritis, H.Pylori, poor compliance with medication likely gastritis rule out pancreatitis Plan: -- Labs -- Pepcid 20mg IV -- IV Fluids -- Maalox 30ml PO -- Zofran 4mg IV 0654 Labs reviewed, patient is hypokalemic Potassium Chloride 20meq ordered Patient advised on high potassium diet at home 0700 Patient signed out to Dr. Steinberg pending reassessment, ER disposition. Scribe Attestation: Documented by Ruby Padilla acting as a scribe for Rosalia Dickson MD. Provider Scribe Attestation: All medical record entries made by the Scribe were at my direction and personally dictated by me. I have reviewed the chart and agree that the record accurately reflects my personal performance of the history, physical exam, medical decision making, and the department course for this patient. I have also personally directed, reviewed, and agree with the discharge instructions and disposition. Disposition - Clinical Impression Clinical Impression: Epigastric abdominal pain - Patient ED Disposition Is Patient to be Admitted: Transfer of Care - Disposition Referrals: Ayaan Barron MD, PhD [Staff Provider] - Enrique Aguirre MD [Medical Doctor] - Disposition: Transfer of Care Disposition Time: 07:00 Condition: STABLE Prescriptions: Dicyclomine [Bentyl] 20 mg PO QID PRN #10 tab PRN Reason: Pain, Moderate (4-7) Famotidine [Pepcid] 20 mg PO BID #20 tab Instructions: Stomach Ache and Stomach Upset, Ulcer and Gastritis Diet Forms: [employer] (Amharic) Patient Signed Over To: Anita Steinberg
[2018-08-15 06:42] LABS: BASO # 0.1 K/uL (0.0-0.2); BASO % 0.8 % (0.0-2.0); EOS # 0.1 K/uL (0.0-0.7); HEMOGLOBIN 13.3 g/dL (12.0-16.0); LYMPH # 1.9 K/uL (1.0-4.3); LYMPH % 20.6 % (20.0-40.0); MEAN CELL VOLUME 95.4 fl (81.0-99.0); MEAN CORPUSCULAR HEMOGLOBIN 32.3 pg (27.0-31.0); MEAN CORPUSCULAR HGB CONC 33.9 g/dL (33.0-37.0); MEAN PLATELET VOLUME 9.3 fl (7.2-11.7); MONO # 0.7 K/uL (0.0-0.8); NEUT # 6.3 K/uL (1.8-7.0); NEUT % 69.6 % (50.0-75.0); RBC 4.12 Mil/uL (3.80-5.20); RED CELL DISTRIBUTION WIDTH 13.4 % (11.5-14.5)
[2018-08-15 06:52] LABS: ALB/GLOB RATIO 1.5 (1.0-2.1); ALBUMIN 4.8 g/dL (3.5-5.0); ALT/SGPT 26 U/L (9-52); AST/SGOT 22 U/L (14-36); BLOOD UREA NITROGEN 9 mg/dl (7-17); CALCIUM 9.4 mg/dL (8.4-10.2); GFR NON-AFRICAN AMERICAN > 60; LIPASE 130 U/L (23-300)
[2018-08-15] MEDS ORDERED: Potassium Chloride 20 mEq ER Tab PO ONE ×2 (06:54→09:50)
[2018-08-15] MEDS ORDERED: Alum-Mag Hydrox-Simethicone Susp (30 mL) PO ONE (06:54)
--- NOTE | 2018-08-15 07:10 | ED PDOC ---
- Laboratory Results Result Diagrams: 08/15/18 06:20 08/15/18 06:20 Lab Results: Total Bilirubin 0.7 mg/dl (0.2-1.3) 08/15/18 06:20 AST 22 U/L (14-36) 08/15/18 06:20 ALT 26 U/L (9-52) 08/15/18 06:20 Alkaline Phosphatase 58 U/L (38-126) 08/15/18 06:20 Total Protein 8.0 G/DL (6.3-8.2) 08/15/18 06:20 Albumin 4.8 g/dL (3.5-5.0) 08/15/18 06:20 Globulin 3.1 gm/dL (2.2-3.9) 08/15/18 06:20 Albumin/Globulin Ratio 1.5 (1.0-2.1) 08/15/18 06:20 Lipase 130 U/L (23-300) 08/15/18 06:20 - ECG O2 Sat by Pulse Oximetry: 100 (RA) Pulse Ox Interpretation: Normal Medical Decision Making Medical Decision Making: Time: [address] Dickson, pending reassessment and final ER disposition. 07:30 Pt hungry, requesting food. 09:20 Pt c/o epigastric pain after eating, Bentyl ordered. 10:00 Pt sleeping comfortably, states feeling better. Has appt with GI today. Scribe Attestation: Documented by Annabel Palacios acting as a scribe for Anita Steinberg MD. Provider Scribe Attestation: All medical record entries made by the Scribe were at my direction and personally dictated by me. I have reviewed the chart and agree that the record accurately reflects my personal performance of the history, physical exam, medical decision making, and the department course for this patient. I have also personally directed, reviewed, and agree with the discharge instructions and disposition. Disposition - Clinical Impression Clinical Impression: Epigastric abdominal pain - POA Present On Arrival: None - Disposition Referrals: Ayaan Barron MD, PhD [Staff Provider] - Enrique Aguirre MD [Medical Doctor] - Disposition: Routine/Home Disposition Time: 10:00 Condition: STABLE Prescriptions: Dicyclomine [Bentyl] 20 mg PO QID PRN #10 tab PRN Reason: Pain, Moderate (4-7) Famotidine [Pepcid] 20 mg PO BID #20 tab Instructions: Stomach Ache and Stomach Upset, Ulcer and Gastritis Diet Forms: [employer] (Tajik)
[2018-08-15] MEDS ORDERED: Alum-Mag Hydrox-Simethicone Susp (30 mL) ONE (09:50)
[2018-08-15 10:57] VITALS: RESP 17
[2018-08-15 11:01] VITALS: BP 129/69; PULSE 74; TEMP 97.9
== END 2018-08-15 10:30 | disposition home or self-care (01) ==
LOC: H.ER 05:40
DX: R10.13 Epigastric pain (principal); F17.200 Nicotine dependence, unspecified, uncomplicated; Z86.19 Personal history of other infectious and parasitic diseases; Z91.14 Patient's other noncompliance with medication regimen
CPT/HCPCS: 80053; 81025; 83690; 85025; 96374; 99284; J2405; J7030

== ENCOUNTER 2018-08-19 07:44 | Emergency (ER) | payer OTHER ==
[2018-08-19 07:53] VITALS: BMI 30.7
--- NOTE | 2018-08-19 08:12 | ED PDOC ---
HPI: Psych/Substance Abuse Time Seen by Provider: 08/19/18 08:02 Chief Complaint (Nursing): Substance Abuse Chief Complaint (Provider): Substance Abuse ED Caveat: Intoxicated History Per: Patient History/Exam Limitations: no limitations Current Symptoms Are (Timing): Still Present Modifying Factor(s): Other (LSD) Additional Complaint(s): 23 year old female with medical history of gastritis and migraines, presents to the emergency department for an evaluation after admitting to taking LSD at midnight last night. Otherwise, she denies any physical complaints, other drug use, alcohol use, suicidal or homicidal ideation. Past Medical History Reviewed: Historical Data, Nursing Documentation, Vital Signs Vital Signs: Last Vital Signs Temp 98.7 F 08/19/18 07:56 Pulse 124 H 08/19/18 07:56 Resp 23 08/19/18 07:56 BP 123/74 08/19/18 07:56 Pulse Ox 98 08/19/18 08:03 Primary Care Provider: FAMILY PROVIDER,NO - Medical History PMH: Gastritis, Migraine Denies: Chronic Kidney Disease - Surgical History Surgical History: Endoscopy - Family History Family History: States: Unknown Family Hx - Social History Alcohol: None Drugs: Other (LSD) - Immunization History Hx Tetanus Toxoid Vaccination: No Hx Influenza Vaccination: No Hx Pneumococcal Vaccination: No - Home Medications Home Medications: Ambulatory Orders Medication Instructions Recorded Omeprazole Magnesium [Prilosec Otc] 20 mg PO DAILY #30 tcp 11/08/16 Cyclobenzaprine [Cyclobenzaprine 10 mg PO Q8 PRN #12 tab 11/20/17 HCl] Naproxen 500 mg PO BID PRN #20 tab 11/20/17 Cephalexin [Keflex] 500 mg PO BID #14 capsule 02/14/18 Ibuprofen [Motrin Tab] 600 mg PO BID #10 tab 04/09/18 Esomeprazole Magnesium [Nexium] 20 mg PO DAILY #15 capsule. 06/15/18 Ondansetron ODT [Zofran ODT] 4 mg PO Q8 PRN #10 odt 06/15/18 Amoxicillin/Clavulanate [Augmentin 1 tab PO BID #30 tab 08/10/18 875 MG-125 MG] Clarithromycin [Biaxin Filmtab] 500 mg PO BID #30 tab 08/10/18 Omeprazole Magnesium [Prilosec Otc] 20 mg PO BID #30 tcp 08/10/18 Sucralfate [Carafate Tab] 1 gm PO Q6 PRN #30 tab 08/10/18 Ondansetron ODT [Zofran ODT] 4 mg PO Q8 PRN #8 odt 08/12/18 Pantoprazole Sodium [Protonix] 40 mg PO DAILY #15 ect 08/12/18 Sucralfate [Carafate] 10 ml PO QID #280 ml 08/12/18 Dicyclomine [Bentyl] 20 mg PO QID PRN #10 tab 08/15/18 Famotidine [Pepcid] 20 mg PO BID #20 tab 08/15/18 - Allergies Allergies/Adverse Reactions: Allergies Allergy/AdvReac Type Severity Reaction Status Date / Time No Known Allergies Allergy Verified 08/19/18 08:02 Review of Systems ROS Statement: Except As Marked, All Systems Reviewed And Found Negative Constitutional: Negative for: Fever, Chills Psych: Negative for: Suicidal ideation (or homidal ideation) Physical Exam - Reviewed Nursing Documentation Reviewed: Yes Vital Signs Reviewed: Yes - Physical Exam Appears: Positive for: Non-toxic, No Acute Distress Head Exam: Positive for: ATRAUMATIC, NORMAL INSPECTION, NORMOCEPHALIC Skin: Positive for: Normal Color. Negative for: Pallor Eye Exam: Positive for: Normal appearance, EOMI, PERRL ENT: Positive for: Normal ENT Inspection. Negative for: Pharyngeal Erythema Neck: Positive for: Normal Cardiovascular/Chest: Positive for: Chest Non Tender, Tachycardia. Negative for: Murmur Respiratory: Positive for: Normal Breath Sounds. Negative for: Wheezing, Respiratory Distress Pulses-Radial (L): 2+ Pulses-Radial (R): 2+ Gastrointestinal/Abdominal: Positive for: Normal Exam, Soft. Negative for: Tenderness Extremity: Positive for: Normal ROM (upper/lower) Neurological/Psych: Positive for: Awake, Alert. Negative for: Motor/Sensory Deficits - Laboratory Results Urine POC: Negative - ECG O2 Sat by Pulse Oximetry: 98 (RA) Pulse Ox Interpretation: Normal - Progress Re-evaluation Time: 11:38 Condition: Improved (Awake alert oriented x 3 no focal neuro deficits. Denies HI/SI) Medical Decision Making Medical Decision Making: Time: 808 Initial Plan: * EKG * Alcohol/drug screen Time: 0900 --Tox/Alc reviewed: (+) cannabinoids. Scribe Attestation: Documented by Kanchan Sharma, acting as a scribe for Arley Bell MD. Provider Scribe Attestation: All medical record entries made by the Scribe were at my direction and personally dictated by me. I have reviewed the chart and agree that the record accurately reflects my personal performance of the history, physical exam, medical decision making, and the department course for this patient. I have also personally directed, reviewed, and agree with the discharge instructions and disposition. Disposition - Clinical Impression Clinical Impression: Substance abuse - Patient ED Disposition Is Patient to be Admitted: No Counseled Patient/Family Regarding: Studies Performed, Diagnosis, Need For Followup - Disposition Referrals: [facility] [Outside] Disposition: Routine/Home Disposition Time: 11:39 Condition: FAIR Instructions: Polysubstance Abuse Forms: [employer] (Ukrainian) Print Language: INDONESIAN
[2018-08-19 08:56] LABS: BARBITURATES, UR NEGATIVE (NEGATIVE); BENZODIAZEPINES, UR NEGATIVE (NEGATIVE); OPIATES, UR NEGATIVE (NEGATIVE); PHENCYCLIDINE, UR NEGATIVE (NEGATIVE)
[2018-08-19 11:53] VITALS: BP 105/62; PULSE 70; RESP 16; TEMP 98; O2SAT 100
--- NOTE | 2018-08-20 09:50 | CARD ---
APPROVED REPORT Date of service: 08/19/2018 EKG Measurement Heart [id number] <Conclusion> Sinus tachycardia Otherwise normal ECG
== END 2018-08-19 11:53 | disposition home or self-care (01) ==
LOC: H.ER 07:44
DX: F19.10 Other psychoactive substance abuse, uncomplicated (principal)